=== PATIENT | male | born 1950 | race Caucasian/White ===

== ENCOUNTER 2021-02-18 11:24 | Emergency (ER) | payer OTHER ==
[2021-02-18 11:31] VITALS: TEMP 98.1; BMI 32.3
[2021-02-18] MEDS ORDERED: CASIRIVIMAB/IMDEVIMAB 10 ML in SODIUM CHLORIDE 100 ML IVPB ONE (15:00)
[2021-02-18 15:53] VITALS: BP 140/78; PULSE 91
== END 2021-02-18 16:00 | disposition home or self-care (01) ==
LOC: JCOVINFU 11:24
DX: U07.1 COVID-19 (principal)
CPT/HCPCS: 96365; 99283-25; Q0240